=== PATIENT | female | born 1960 | race Caucasian/White ===

== ENCOUNTER 2021-01-19 22:40 | Emergency (ER) | payer OTHER, SELFPAY ==
--- NOTE | ~2021-01-19 | XR_ITS ---
EXAMINATION: XR wrist RT min 3V DATE: 01/19/2021 23:28 INDICATION: Medial right wrist pain post fall TECHNIQUE: Posteroanterior, ulnar deviation, oblique, and lateral views of the right wrist were obtai lidia. COMPARISON: none FINDINGS: Alignment is normal. No fracture. Mild osteoarthritis with typical distribution at the triscaphe, fir st carpometacarpal, first metacarpophalangeal and first interphalangeal joints. Soft tissues are unre markable. IMPRESSION: 1. Mild polyarticular osteoarthritis. No acute osseous abnormalities. Reviewed, dictated and finalized at location A.
--- NOTE | ~2021-01-19 | XR_ITS ---
EXAMINATION: XR knee RT min 4V DATE: 01/19/2021 23:26 INDICATION: Generalized right knee pain post fall TECHNIQUE: Anteroposterior, 2 oblique and crosstable lateral views of the right knee were obtained COMPARISON: None. FINDINGS: Alignment is normal. No fracture. Tricompartmental osteoarthritis with small to moderate size margin al osteophytes in all 3 compartments and at least mild joint space narrowing in the medial compartmen t. Severity of joint space narrowing can however be underestimated on nonweightbearing imaging. Small physiologic amount fluid at the suprapatellar pouch with no layering lipohemarthrosis. Small despite at the proximal pole of the patella. Soft tissues are unremarkable. IMPRESSION: 1. At least mild tricompartmental osteoarthritis at the right knee. No right knee joint effusion or a cute osseous abnormality. Reviewed, dictated and finalized at location A. IMPRESSION: 1. At least mild tricompartmental osteoarthritis at the right knee. No right kn ee joint effusion or acute osseous abnormality.
[2021-01-19 22:47] VITALS: BP 189/83; PULSE 80; RESP 20; TEMP 36.1; O2SAT 96
--- NOTE | 2021-01-20 02:31 | ED.GENADULT ---
HPI - General Adult General Chief complaint: Fall Stated complaint: fall, right wrist and knee pain Time Seen by Provider: 01/20/21 02:19 History of Present Illness HPI narrative: Patient 60-year-old female presents the emergency department with chief complaint of right wrist and right knee pain. 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 Patient reports he had no loss of consciousness reports that she has pain in the circumferential component of the the right wrist reports that there is no deformity reports no laceration. Patient reports that she also has pain in the right knee and has an abrasion on the dorsum of the knee. Patient reports that the pain is worse with movement and improved with rest. Related Data Home Medications Medication Instructions Recorded Confirmed amlodipine 5 mg PO DAILY 07/12/19 07/12/19 Allergies Allergy/AdvReac Type Severity Reaction Status Date / Time No Known Allergies Allergy Unknown Verified 01/20/21 01:14 Review of Systems Review of Systems: Narrative: A 10 system review of systems was completed on the patient and is negative except for what is stated in the HPI. Nursing and ancillary documentation was reviewed. PMFSH Past Medical History Medical History Anemia Hx of migraine headaches Hyperlipidemia Hypertension Morbid obesity Surgical History Surgical History History of ankle surgery History of cholecystectomy Family History Family History Father Diabetes mellitus Mother Diabetes mellitus Social History Social History Smoking status: Current every day smoker Alcohol intake: never Exam Narrative: Exam Narrative: GENERAL: Well-appearing, well-nourished, and in no acute distress. HEAD: Normocephalic, atraumatic. EYES: PERRLA and EOMI. ENT: Nares clear, no rhinorrhea or epistaxis. Mucous membranes moist. NECK: Supple. CHEST: Clear to auscultation. No respiratory distress. HEART: Regular rate and rhythm. No murmur heard. Normal peripheral pulses. ABDOMEN: Soft, nontender, nondistended, normal active bowel sounds. EXTREMITIES: Normal range of motion. No edema. There is tenderness to palpation in the right wrist, there is an abrasion to the dorsum of the right knee there is mild tenderness to palpation in the knee but no deformity. SKIN: Warm, dry, no rash. NEURO: No focal deficits. Alert and oriented x3. PSYCH: Normal mood and affect. Course Course Emergency Course: Plain film x-rays read by the radiologist showed no evidence of fracture Vital Signs Vital signs: Vital Signs Temperature 36.1 C L 01/19/21 22:47 Pulse Rate 80 01/19/21 22:47 Respiratory Rate 20 01/19/21 22:47 Blood Pressure 189/83 H 01/19/21 22:47 Pulse Oximetry 96 01/19/21 22:47 Temperature 36.1 C L 01/19/21 22:47 Pulse Rate 80 01/19/21 22:47 Respiratory Rate 20 01/19/21 22:47 Blood Pressure 189/83 H 01/19/21 22:47 Pulse Oximetry 96 01/19/21 22:47 Medical Decision Making Vital Signs Vital Signs: Vital Signs Temperature 36.1 C L 01/19/21 22:47 Pulse Rate 80 01/19/21 22:47 Respiratory Rate 20 01/19/21 22:47 Blood Pressure 189/83 H 01/19/21 22:47 Pulse Oximetry 96 01/19/21 22:47 Temperature 36.1 C L 01/19/21 22:47 Pulse Rate 80 01/19/21 22:47 Respiratory Rate 20 01/19/21 22:47 Blood Pressure 189/83 H 01/19/21 22:47 Pulse Oximetry 96 01/19/21 22:47 Discharge Plan Discharge Clinical Impression: Right wrist sprain Qualifiers: Encounter type: initial encounter Qualified Code(s): S63.501A - Unspecified sprain of right wrist, initial encounter Abrasion of knee,
--- NOTE | 2021-01-20 02:52 | PC.NURSE ---
Pt dc home alert, stable and in no obvious distress. Cock up splint applied and pt tolerating well. EDMD notified of pt BP of 207/96 and is aware of pt being non compliant with medications. Pt advised to follow up with pcp in regards to pcp and voices her understanding.
[2021-01-20 02:54] VITALS: BP 207/96; PULSE 67; RESP 18; TEMP 37.3; O2SAT 95
[2021-01-20 02:56] VITALS: BP 207/96; PULSE 67; RESP 18; TEMP 37.3; O2SAT 95
== END 2021-01-20 02:58 | disposition home or self-care (01) ==
PROVIDERS: Emergency Provider Emergency Medicine; PCP Emergency Medicine
DX: S63.501A Unspecified sprain of right wrist, initial encounter (principal); S80.211A Abrasion, right knee, initial encounter; S83.91XA Sprain of unspecified site of right knee, initial encounter; Z86.2 Personal history of diseases of the blood and blood-forming organs and certain disorders involving the immune mechanism; E78.5 Hyperlipidemia, unspecified; I10 Essential (primary) hypertension; E66.01 Morbid (severe) obesity due to excess calories; Z68.42 Body mass index [BMI] 45.0-49.9, adult; F17.200 Nicotine dependence, unspecified, uncomplicated; W18.09XA Striking against other object with subsequent fall, initial encounter
CPT/HCPCS: 73110; 73564; 99284

== ENCOUNTER 2022-08-26 14:03 | Outpatient (CLI) | payer OTHER, SELFPAY ==
--- NOTE | ~2022-08-26 | XR_ITS ---
XR heel LT min 2V DATE: 08/26/2022 14:21 INDICATION: Left heel pain TECHNIQUE: Axial and lateral views COMPARISON: None FINDINGS: There is very prominent plantar and posterior calcaneal enthesopathy, some calcifications o f the distal Achilles tendon and prominent posterior soft tissue swelling at the Achilles tendon. No calcaneal fracture or bone destruction is detected. There is hypertrophic degenerative change at the talonavicular and tarsal and tarsometatarsal joints as well as tibiotalar osteoarthritis. IMPRESSION: Distal Achilles calcific tendinitis Very prominent posterior and plantar calcaneal enthesopathy Osteoarthritic changes at the tibiotalar and tarsal and tarsometatarsal joints Reviewed, dictated and finalized at location B. X RAY
== END 2022-08-26 14:04 | disposition home or self-care (01) ==
PROVIDERS: PCP Nurse Practitioner Family; Visit Provider Nurse Practitioner Family
DX: M79.672 Pain in left foot (principal); M76.62 Achilles tendinitis, left leg; M77.32 Calcaneal spur, left foot; M19.072 Primary osteoarthritis, left ankle and foot
CPT/HCPCS: 73650

== ENCOUNTER 2022-09-25 07:55 | Outpatient (CLI) | payer OTHER, SELFPAY ==
--- NOTE | ~2022-09-25 | US_ITS ---
US arterial ankle brachial ind INDICATION: Smoker. TECHNIQUE: Segmental pressures and plethysmographic and Doppler waveforms of the brachial and lower e xtremity arteries were obtained. COMPARISON: None. FINDINGS: Right and left brachial artery pressures of 170 mm Hg and 187 mm Hg, respectively, are concordant (no rmal difference <= 30 mmHg). The right ankle-brachial index (NAOMY) is 1.05 (normal >= 0.9-1.0). The right great toe-brachial index (TBI) is 0.5 (normal >= 0.60). The left NAOMY is 0.99. The left TBI is 0.65. IMPRESSION: 1. Normal left ankle and toe brachial indices. 2: Diminished right toe brachial index consistent with mild peripheral arterial disease. Reviewed, dictated and finalized at location A. [employer] IMPRESSION: 1. Normal left ankle and toe brachial indices. 2: Diminished right toe brachial index consistent with mild peripheral arteria l disease.
--- NOTE | ~2022-09-25 | US_ITS ---
EXAMINATION: US arterial duplex LE DATE: 09/25/2022 09:17 INDICATION: Arterial occlusive disease. TECHNIQUE: Multiple grayscale and Doppler ultrasound images of the lower limbs were obtained. COMPARISON: None FINDINGS: Peak systolic velocity is 119 cm/s in right common femoral artery, 102 cm/s in deep femoral artery, 116 cm/s in superficial femoral artery, 101 cm/s in popliteal artery, and 84 cm/s in posteri or tibial artery. The peroneal artery was not well visualized. Peak systolic velocity is 120 cm/s in left common femoral artery, 74 cm/s in the deep femoral artery, 105 cm/s in superficial femoral artery, 55 cm/s in popliteal artery, and 67 cm/s in posterior tibial artery. The peroneal artery was not well visualized. IMPRESSION: 1. No significant arterial occlusive disease. Reviewed, dictated and finalized at location A. SCALER
== END 2022-09-25 07:56 | disposition home or self-care (01) ==
PROVIDERS: PCP Nurse Practitioner Family; Visit Provider Podiatrist Foot & Ankle Surgery
DX: I73.9 Peripheral vascular disease, unspecified (principal); F17.200 Nicotine dependence, unspecified, uncomplicated
CPT/HCPCS: 93922; 93925